=== PATIENT | male | born 1990 ===

== ENCOUNTER 2016-08-26 19:45 | Emergency (ER) | payer OTHER ==
[2016-08-26 19:46] VITALS: BMI 38.0
[2016-08-26] MEDS ORDERED: cefTRIAXone (Rocephin) 1 gm Inj IM STA (20:00)
[2016-08-26] MEDS ORDERED: Tmp-Smz 800 mg-160 mg DS Tab PO STA (20:00)
[2016-08-26] MEDS ORDERED: Oxycodone/Acetaminophen 5/325 mg Tab PO STA ×2 (20:00→20:17)
--- NOTE | 2016-08-26 20:19 | ED PDOC ---
Arrival/HPI - General Chief Complaint: Abnormal Skin Integrity Time Seen by Provider: 08/26/16 20:00 Historian: Patient - History of Present Illness Narrative History of Present Illness (Text): 08/26/16 20:15 25 y/o male, no pmh, nkda, c/o lower lump pain on the gluteal fold region x 4 days. Aching pain, painful to sit, no fever or chills, no night sweat, no dizziness, no change in vision, no palpitation, no abdominal pain, no neck stiffness, no numbness or tingling, no other medical or psychological complaints. Past Medical History - Provider Review Nursing Documentation Reviewed: Yes - Infectious Disease Hx of Infectious Diseases: None - Tetanus Immunization Tetanus Immunization: >10 years Ago - Past Medical History Past Medical History: No Previous - Cardiac Hx Cardiac Arrhythmia: No Hx Congestive Heart Failure: No Hx MN: No Hx Hypertension: No Hx Internal Defibrillator: No Hx Mitral Valve Prolapse: No Hx Pacemaker: No Hx Peripheral Edema: No - Pulmonary Hx Asthma: No Hx Bronchitis: No Hx Chronic Obstructive Pulmonary Disease (COPD): No Hx Emphysema: No - Neurological Hx Alzheimer's Disease: No HX Cerebrovascular Accident: No Hx Dementia: No Hx Migraine: No Hx Parkinson's Disease: No Hx Seizures: No Hx Transient Ischemic Attacks (TIA): No - Renal Hx Renal Failure: No - Endocrine/Metabolic Hx Hyperthyroidism: No Hx Hypothyroidism: No - Hematological/Oncological Hx Anemia: No Hx Cancer: No Hx Hepatitis A: No Hx Hepatitis B: No Hx Hepatitis C: No - Musculoskeletal/Rheumatological Hx Arthritis: No - Gastrointestinal Hx Crohn's Disease: No Hx Diverticulitis: No Hx Gastroesophageal Reflux: Yes Hx Gastrointestinal Ulcer: No Hx Liver Failure: No - Psychiatric Hx Depression: No Hx Emotional Abuse: No Hx Physical Abuse: No Hx Substance Use: No - Past Surgical History Past Surgical History: No Previous - Surgical History Hx Amputation: No Hx Appendectomy: No Hx Cardiac Catheterization: No Hx Cholecystectomy: No Hx Coronary Stent: No Hx Gastric Bypass Surgery: No Hx Hysterectomy: No Hx Joint Replacement: No Hx Kidney Transplant: No Hx Liver Transplant: No Hx Mastectomy: No Hx Open Heart Surgery: No Hx Orthopedic Surgery: No Hx Splenectomy: No Hx Tonsillectomy: No Hx Tubal Ligation: No Hx Valve Replacement: No - Anesthesia Hx Anesthesia: No - Suicidal Assessment Feels Threatened In Home Enviroment: No Family/Social History - Physician Review Nursing Documentation Reviewed: Yes Family/Social History: Unknown Family HX Smoking Status: Never Smoked Hx Alcohol Use: Yes Frequency of alcohol use: Socially Hx Substance Use: No Hx Substance Use Treatment: No Allergies/Home Meds Allergies/Adverse Reactions: Allergies No Known Allergies Allergy (Verified 08/26/16 19:46) Home Medications: Home Meds Medication Instructions Recorded Confirmed Cetirizine HCl [24Hour Allergy] 1 tab PO DAILY 08/26/16 08/26/16 Review of Systems - Review of Systems Constitutional: absent: Fatigue, Fevers Eyes: absent: Vision Changes ENT: absent: Hearing Changes Respiratory: absent: SOB, Cough Cardiovascular: absent: Chest Pain Gastrointestinal: absent: Abdominal Pain, Nausea, Vomiting Musculoskeletal: absent: Arthralgias, Back Pain, Neck Pain Skin: Rash, Skin Lesions. absent: Pruritis Neurological: absent: Headache, Dizziness, Focal Weakness Physical Exam Vital Signs Reviewed: Yes Vital Signs Temp Pulse Resp BP Pulse Ox 08/26/16 20:35 149/98 H 100 08/26/16 19:48 99.8 F H 122 H 19 150/101 H 97 Temperature: Afebrile Blood Pressure: Normal Pulse: Tachycardic Respiratory Rate: Normal Appearance: Positive for: Well-Appearing, Non-Toxic Pain Distress: Severe Mental Status: Positive for: Alert and Oriented X 3 - Systems Exam Head: Present: Atraumatic, Normocephalic Pupils: Present: PERRL Extroacular Muscles: Present: EOMI Conjunctiva: Present: Normal Mouth: Present: Moist Mucous Membranes Neck: Present: Normal Range of Motion Respiratory/Chest: Present: Clear to Auscultation, Good Air Exchange. No: Respiratory Distress, Accessory Muscle Use Cardiovascular: Present: Regular Rate and Rhythm, Normal S1, S2. No: Murmurs Abdomen: Present: Normal Bowel Sounds. No: Tenderness, Distention, Peritoneal Signs, Rebound, Guarding Back: Present: Normal Inspection Upper Extremity: Present: Normal Inspection. No: Cyanosis, Edema Lower Extremity: Present: Normal Inspection. No: Edema Neurological: Present: GCS=15, Speech Normal, Motor Func Grossly Intact, Gait Normal, Memory Normal Skin: Present: Warm, Dry, Rashes (visible and palpable fluctuant pilonoidal abscess noted approx. [id number] on the lt. lateral gluteal fold region with no regional lymphenapathy), Normal Color Psychiatric: Present: Alert, Oriented x 3, Normal Insight, Normal Concentration Medical Decision Making ED Course and Treatment: 08/26/16 20:19 -labs -IV clindamcyin/toradol/percocet -bed side sonogram confirmed the size of the abscess is approx. 2cmx2.5cm -sensation intact, motor 5/5, wound irrigate with normal saline, clean with betadine, 1% lidcoaine injected locally with 1.5cc, #11 blade made 1cm incision , drained about 5 cc, 1/4 iodofoam packing inserted, hemostasis obtained, sensation intact, motor 5/5. 08/26/16 21:35 -Labs are non-significant except wbc 12.0 -Pt. feels much better. -Discharge home with keflex, bactrimds, motrin, keep the dressing dry and clean , dressing needs to be changed and packing needs to be changed every 2 days, return to the ER in 2 days for packing/dressing change, follow up with your own pmd and general surgery in 3 days, return to the ER sooner for any new or worsening signs or symptoms. - Lab Interpretations Lab Results: 08/26/16 20:40 08/26/16 20:40 Lab Results 08/26/16 20:40: Sodium 138, Potassium 3.8, Chloride 101, Carbon Dioxide 26, Anion Gap 15, BUN 13, Creatinine 0.8, Est GFR ( Amer) > 60, Est GFR (Non- Af Amer) > 60, Random Glucose 95, Calcium 9.3, Total Bilirubin 0.6, AST 28, ALT 37, Alkaline Phosphatase 115, Total Protein 8.2, Albumin 4.4, Globulin 3.8, Albumin/Globulin Ratio 1.2 08/26/16 20:40: WBC 12.0 H D, RBC 5.31, Hgb 13.5 L, Hct 39.8 L, MCV 75.0 L, MCH 25.4, MCHC 33.9, RDW 15.0 H, Plt Count 396, MPV 9.2, Gran % 69.6 H, Lymph % ( Auto) 21.3 L, Reagan % (Auto) 6.7 H, Eos % (Auto) 2.2, Baso % (Auto) 0.2, Gran # 8.37 H, Lymph # 2.6, Reagan # 0.8 H, Eos # 0.3, Baso # 0.03 I have reviewed the lab results: Yes Interpretation: Abnormal lab values (wbc 12.0) - Medication Orders Current Medication Orders: Discontinued Medications Acetaminophen (Tylenol 325mg Tab) 325 mg PO STAT STA Stop: 08/26/16 20:18 Last Admin: 08/26/16 20:45 Dose: 325 mg Clindamycin Phosphate 900 mg/ (Sodium Chloride) 106 mls @ 106 mls/hr IVPB STAT STA PRN Reason: Protocol Stop: 08/26/16 21:16 Last Admin: 08/26/16 21:01 Dose: 106 mls/hr Ketorolac Tromethamine (Toradol) 30 mg IVP STAT STA Stop: 08/26/16 20:18 Last Admin: 08/26/16 20:44 Dose: 30 mg Oxycodone/Acetaminophen (Percocet 5/325 Mg Tab) 1 tab PO STAT STA Stop: 08/26/16 20:18 Last Admin: 08/26/16 20:45 Dose: 1 tab - 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 Disposition/Present on Arrival - Present on Arrival Any Indicators Present on Arrival: No History of DVT/PE: No History of Uncontrolled Diabetes: No Urinary Catheter: No History of Decub. Ulcer: No History Surgical Site Infection Following: None - Disposition Have Diagnosis and Disposition been Completed?: Yes Diagnosis: Pilonidal abscess Disposition: HOME/ ROUTINE Disposition Time: 20:22 Patient Plan: Discharge Patient Problems: Current Active Problems Problem Status Onset Pilonidal abscess Acute Condition: IMPROVED Additional Instructions: -Discharge home with keflex, bactrimds, motrin, keep the dressing dry and clean , dressing needs to be changed and packing needs to be changed every 2 days, return to the ER in 2 days for packing/dressing change, follow up with your own pmd and general surgery in 3 days, return to the ER sooner for any new or worsening signs or symptoms. Prescriptions: Cephalexin [cephalexin] 500 mg PO QID #40 cap Ibuprofen [Motrin] 600 mg PO QID PRN #30 tab PRN Reason: Other Sulfamethoxazole/Trimethoprim [Bactrim Ds Tablet] 1 each PO BID #20 tablet Referrals: Anurag Weinstein MD [Primary Care Provider] - Follow up with primary Nicole Henry MD [Staff Provider] - Follow up with primary Forms: WORK NOTE
[2016-08-26 20:59] LABS: BASO # 0.03 K/mm3 (0.0-2.0); BASO % 0.2 % (0.0-3.0); EOS # 0.3 (0.0-0.7); EOS % 2.2 % (1.5-5.0); GRAN # 8.37 (1.4-6.5); GRAN % 69.6 % (50.0-68.0); HEMOGLOBIN 13.5 gm/dL (14.0-18.0); LYMPH # 2.6 (1.2-3.4); LYMPH % 21.3 % (22.0-35.0); MEAN CORPUSCULAR HEMOGLOBIN 25.4 pg (25.0-35.0); MEAN CORPUSCULAR HGB CONC 33.9 g/dl (31.0-37.0); MEAN PLATELET VOLUME 9.2 fl (7.0-11.0); MONO # 0.8 (0.1-0.6); MONO % 6.7 % (1.0-6.0); PLATELET COUNT 396 10^3/uL (120.0-450.0); RBC 5.31 10^6/uL (3.5-6.1)
[2016-08-26 21:07] LABS: ALB/GLOB RATIO 1.2 (1.1-1.8); ALBUMIN 4.4 g/dL (3.0-4.8); ALT/SGPT 37 U/L (7-56); AST/SGOT 28 U/L (15-59); BLOOD UREA NITROGEN 13 mg/dL (7-21); CALCIUM 9.3 mg/dL (8.4-10.5); GFR AFRICAN-AMERICAN > 60; GFR NON-AFRICAN AMERICAN > 60
[2016-08-26 22:28] VITALS: BP 141/82; PULSE 96; RESP 18; TEMP 98.7; O2SAT 96
== END 2016-08-26 21:59 | disposition home or self-care (01) ==
LOC: ED 19:45
DX: L05.01 Pilonidal cyst with abscess (principal)
CPT/HCPCS: 10080; 80053; 85025; 96365; 96375; 99284; J1885

== ENCOUNTER 2016-08-28 18:56 | Emergency (ER) | payer OTHER ==
[2016-08-28 18:56] VITALS: BMI 38.0
[2016-08-28 19:18] VITALS: BP 125/71; PULSE 85; RESP 19; TEMP 98; O2SAT 99
--- NOTE | 2016-08-28 19:27 | ED PDOC ---
Arrival/HPI - General Chief Complaint: Wound Check Time Seen by Provider: 08/28/16 19:03 Historian: Patient - History of Present Illness Narrative History of Present Illness (Text): 08/28/16 19:26 25yr old male presents today for packing removal from abscess to buttock. pt states he is feeling much better. states pain is greatly improved. denies fever /chills. pt states he has been taking antibiotics as prescribed. no abdominal pain. no vomiting/diarrhea. no other complaints. Time/Duration: Other (2 days) Symptom Onset: Gradual Symptom Course: Improving Quality: Aching Severity Level: 2 Past Medical History - Provider Review Nursing Documentation Reviewed: Yes - Travel History Have you recently traveled outside [place] w/in the past 3 mons?: No - Infectious Disease Hx of Infectious Diseases: None - Tetanus Immunization Tetanus Immunization: >10 years Ago - Past Medical History Past Medical History: No Previous - Cardiac Hx Cardiac Arrhythmia: No Hx Congestive Heart Failure: No Hx PR: No Hx Hypertension: No Hx Internal Defibrillator: No Hx Mitral Valve Prolapse: No Hx Pacemaker: No Hx Peripheral Edema: No - Pulmonary Hx Asthma: No Hx Bronchitis: No Hx Chronic Obstructive Pulmonary Disease (COPD): No Hx Emphysema: No - Neurological Hx Alzheimer's Disease: No HX Cerebrovascular Accident: No Hx Dementia: No Hx Migraine: No Hx Parkinson's Disease: No Hx Seizures: No Hx Transient Ischemic Attacks (TIA): No - Renal Hx Renal Failure: No - Endocrine/Metabolic Hx Hyperthyroidism: No Hx Hypothyroidism: No - Hematological/Oncological Hx Anemia: No Hx Cancer: No Hx Hepatitis A: No Hx Hepatitis B: No Hx Hepatitis C: No - Musculoskeletal/Rheumatological Hx Arthritis: No - Gastrointestinal Hx Crohn's Disease: No Hx Diverticulitis: No Hx Gastroesophageal Reflux: Yes Hx Gastrointestinal Ulcer: No Hx Liver Failure: No - Psychiatric Hx Depression: No Hx Emotional Abuse: No Hx Physical Abuse: No Hx Substance Use: No - Past Surgical History Past Surgical History: No Previous - Surgical History Hx Amputation: No Hx Appendectomy: No Hx Cardiac Catheterization: No Hx Cholecystectomy: No Hx Coronary Stent: No Hx Gastric Bypass Surgery: No Hx Hysterectomy: No Hx Joint Replacement: No Hx Kidney Transplant: No Hx Liver Transplant: No Hx Mastectomy: No Hx Open Heart Surgery: No Hx Orthopedic Surgery: No Hx Splenectomy: No Hx Tonsillectomy: No Hx Tubal Ligation: No Hx Valve Replacement: No - Anesthesia Hx Anesthesia: No - Suicidal Assessment Feels Threatened In Home Enviroment: No Family/Social History - Physician Review Nursing Documentation Reviewed: Yes Family/Social History: Unknown Family HX Smoking Status: Never Smoked Hx Alcohol Use: Yes Hx Substance Use: No Hx Substance Use Treatment: No Allergies/Home Meds Allergies/Adverse Reactions: Allergies No Known Allergies Allergy (Verified 08/26/16 19:46) Home Medications: Home Meds Medication Instructions Recorded Confirmed Cetirizine HCl [24Hour Allergy] 1 tab PO DAILY 08/26/16 08/28/16 Review of Systems - Review of Systems Constitutional: absent: Fatigue, Fevers Respiratory: absent: SOB, Cough Cardiovascular: absent: Chest Pain, Palpitations Gastrointestinal: absent: Abdominal Pain, Diarrhea, Nausea, Vomiting Skin: Abscess Neurological: absent: Headache, Dizziness Psychiatric: absent: Anxiety, Depression Physical Exam Vital Signs Reviewed: Yes Vital Signs Temp Pulse Resp BP Pulse Ox 08/28/16 19:16 98 F 85 19 125/71 99 08/28/16 19:09 99.0 F 108 H 18 135/81 97 Temperature: Afebrile Blood Pressure: Normal Pulse: Tachycardic Respiratory Rate: Normal Appearance: Positive for: Well-Appearing, Non-Toxic, Comfortable Pain Distress: None Mental Status: Positive for: Alert and Oriented X 3 - Systems Exam Head: Present: Atraumatic Neck: Present: Normal Range of Motion Respiratory/Chest: Present: Clear to Auscultation, Good Air Exchange. No: Respiratory Distress, Accessory Muscle Use Cardiovascular: Present: Regular Rate and Rhythm, Normal S1, S2. No: Murmurs Skin: Present: Warm, Dry, Abscess (there is an abscess with packing in place noted to buttock crease; no erythema; non tender; no purulent discharge noted. ) Psychiatric: Present: Alert, Oriented x 3 Medical Decision Making ED Course and Treatment: 08/28/16 19:28 Patient is nontoxic well-appearing in no distress. Vital signs are stable. Patient with abscess to the buttocks crease status post I&D 2 days ago Packing removed. Wound healing well. Dressing applied Patient was advised to use warm compresses, warm soaks. Advised follow-up with a surgeon within the next 2 days. Advise continuing antibiotics until completion. return immediately if symptoms worsen persist or if new symptoms develop Patient verbalizes understanding of discharge instructions and need for immediate followup. all aspects of this case were discussed the attending of record. Impression:Wound check, abscess Continue antibiotics as prescribed Motrin every 6 hours as needed for pain Follow-up the surgeon within the next 2 days Warm compresses, warm soaks Return immediately if symptoms worsen persist or if new concerning symptoms develop: High fevers, increasing pain, increasing redness, increasing swelling, purulent discharge Disposition/Present on Arrival - Present on Arrival Any Indicators Present on Arrival: No History of DVT/PE: No History of Uncontrolled Diabetes: No Urinary Catheter: No History of Decub. Ulcer: No History Surgical Site Infection Following: None - Disposition Have Diagnosis and Disposition been Completed?: Yes Diagnosis: Visit for wound check Disposition: HOME/ ROUTINE Disposition Time: 19:25 Patient Plan: Discharge Patient Problems: Current Active Problems Problem Status Onset Wound check, abscess Acute Condition: GOOD Discharge Instructions (ExitCare): Abscess (ED) Additional Instructions: Continue antibiotics as prescribed Motrin every 6 hours as needed for pain Follow-up the surgeon within the next 2 days Follow up with the primary care physician. Warm compresses, warm soaks Return immediately if symptoms worsen persist or if new concerning symptoms develop: High fevers, increasing pain, increasing redness, increasing swelling, purulent discharge Referrals: Gerardo Martini MD [Staff Provider] - Follow up with primary
== END 2016-08-28 19:35 | disposition home or self-care (01) ==
LOC: ED 18:56
DX: Z51.89 Encounter for other specified aftercare (principal)